=== PATIENT | male | born 1940 | race Caucasian/White ===

== ENCOUNTER 2017-03-24 06:24 | Day surgery (SDC) | payer MEDICARE ==
[2017-03-22 15:33] VITALS: BP 148/83
[2017-03-22 15:40] LABS: BASOPHILS % (AUTO) 0.6 % (0.0-5.0); EOSINOPHILS % (AUTO) 1.5 % (0.0-8.0); HEMATOCRIT 47.2 % (42-54); LYMPHOCYTES % (AUTO) 22.4 % (21.0-51.0); MEAN CORPUSCULAR HEMOGLOBIN 31.8 pg (27.0-33.0); MEAN CORPUSCULAR HGB CONC 33.3 g/dL (32.0-36.0); MEAN CORPUSCULAR VOLUME 95.5 fL (79-99); MONOCYTES % (AUTO) 9.5 % (3.0-13.0); PLATELET COUNT (AUTO) 163 K/uL (130-400); RED BLOOD CELL COUNT(AUTO) 4.94 MIL/uL (4.50-6.20); RED CELL DISTRIBUTION WIDTH 14.2 % (11.0-15.5); WHITE BLOOD COUNT (AUTO) 6.2 K/uL (4.8-10.8)
[2017-03-22 15:43] LABS: APPEARANCE,URINE Clear (CLEAR); BILIRUBIN,URINE Negative (NEGATIVE); COLOR,URINE Yellow (YELLOW); GLUCOSE, URINE (UA) Negative (NEGATIVE); KETONES,URINE Negative (NEGATIVE); LEUKOCYTE ESTERASE ,URINE Trace (NEGATIVE); NITRATE,URINE Negative (NEGATIVE); OCCULT BLOOD,URINE Negative (NEGATIVE); PH,URINE 6.5 (5.0-8.0); PROTEIN,URINE Negative (NEGATIVE)
[2017-03-22 15:55] LABS: POTASSIUM 4.5 mmol/L (3.5-5.1)
[2017-03-22 16:16] LABS: BACTERIA,URINE Rare /HPF (None Seen); RBC,URINE None Seen /HPF (0-1); WBC,URINE 0-1 /HPF (0-1)
[~2017-03-24] VITALS: Ht 175.3 cm; Wt 92.5 kg
[2017-03-24] VITALS (12 sets, daily range): BP systolic 109–154; BP diastolic 53–90
[2017-03-24] MEDS: CEFTRIAXONE SODIUM 1 GM IVP SCH ×2 (06:00→08:19)
[2017-03-24] MEDS: GENTAMICIN 80 MG/NS 100 ML PB 100 ML IV SCH ×2 (06:00→08:12)
[~2017-03-24 06:24] MED LIST: ATOR10TA69 PO; FINA5TAB41 PO; LEVO25TA54 PO; LISI10TA7 PO; PANT40TA25 PO; TAMS0.4C32 PO; bayer PO
[2017-03-24] MEDS ORDERED: LACTATED RINGERS 1000ML 1,000 ML IV ONE (07:00)
[2017-03-24] MEDS ORDERED: WATER FOR INJECTION,STERILE 20 ML VIAL ONE (07:02)
[2017-03-24] MEDS ORDERED: MIDAZOLAM HCL 1 MG/ML 2ML VIAL ONE (07:33)
[2017-03-24] MEDS ORDERED: FENTANYL CITRATE PF 50 MCG/1 ML 2ML VIAL ONE (07:34)
== END 2017-03-24 10:30 | disposition home or self-care (01) ==
LOC: DAH 06:24
PROVIDERS: ATTEND Urology
DX: C61 Malignant neoplasm of prostate (principal); I25.10 Atherosclerotic heart disease of native coronary artery without angina pectoris; E78.5 Hyperlipidemia, unspecified; I10 Essential (primary) hypertension; Z98.890 Other specified postprocedural states; Z88.0 Allergy status to penicillin
CPT/HCPCS: 36415; 55700; 76942; 80048; 81001; 85025; 87088; 88305; 93005; A4215; A4600; J0696; J1580; J2250; J3010; J7120

== ENCOUNTER → 2017-04-28 | Outpatient (CLI) | payer MEDICARE | END | disposition home or self-care (01) | LOC: RAH 10:15 | PROVIDERS: ATTEND Internal Medicine Critical Care Medicine | DX: R05 Cough (principal) | CPT/HCPCS: 71046 ==

== ENCOUNTER → 2017-11-16 | Outpatient (CLI) | payer MEDICARE | END | disposition home or self-care (01) | LOC: SHCH 12:54 | PROVIDERS: ATTEND Internal Medicine Cardiovascular Disease | DX: R94.31 Abnormal electrocardiogram [ECG] [EKG] (principal); I10 Essential (primary) hypertension; E78.5 Hyperlipidemia, unspecified; I25.10 Atherosclerotic heart disease of native coronary artery without angina pectoris | CPT/HCPCS: 93306 ==

== ENCOUNTER 2017-12-26 06:15 | Day surgery (SDC) | payer MEDICARE ==
[2017-12-22 10:37] VITALS: BP 121/73
[2017-12-22 10:39] LABS: BASOPHILS % (AUTO) 0.5 % (0.0-5.0); EOSINOPHILS % (AUTO) 1.9 % (0.0-8.0); HEMATOCRIT 43.4 % (42-54); LYMPHOCYTES % (AUTO) 21.9 % (21.0-51.0); MEAN CORPUSCULAR HEMOGLOBIN 32.7 pg (27.0-33.0); MEAN CORPUSCULAR HGB CONC 34.5 g/dL (32.0-36.0); MEAN CORPUSCULAR VOLUME 94.7 fL (79-99); MONOCYTES % (AUTO) 10.3 % (3.0-13.0); NEUTROPHILS % (AUTO) 65.4 % (40.0-77.0); NUCLEATED RED BLOOD CELLS 0.1 % (0.0-0.19); PLATELET COUNT (AUTO) 125 K/uL (130-400); RED BLOOD CELL COUNT(AUTO) 4.58 MIL/uL (4.50-6.20); RED CELL DISTRIBUTION WIDTH 13.4 % (11.0-15.5)
[2017-12-22 10:45] LABS: CREATININE 0.9 mg/dL (0.5-1.5); POTASSIUM 4.4 mmol/L (3.5-5.1)
[2017-12-22 10:48] LABS: APPEARANCE,URINE Clear (CLEAR); BILIRUBIN,URINE Negative (NEGATIVE); COLOR,URINE Yellow (YELLOW); GLUCOSE, URINE (UA) Negative (NEGATIVE); KETONES,URINE Negative (NEGATIVE); LEUKOCYTE ESTERASE ,URINE Negative (NEGATIVE); NITRATE,URINE Negative (NEGATIVE); OCCULT BLOOD,URINE Negative (NEGATIVE); PROTEIN,URINE Negative (NEGATIVE)
[2017-12-22 11:46] LABS: INR 0.98 (0.85-1.15); PARTIAL THROMBOPLASTIN TIME 29.2 SEC (26.3-35.5); PROTHROMBIN TIME 10.3 SEC (9.6-11.6)
[~2017-12-26] VITALS: Ht 179.1 cm; Wt 87.7 kg
[2017-12-26] VITALS (9 sets, daily range): BP systolic 104–124; BP diastolic 62–78
[~2017-12-26 06:15] MED LIST changes: +MULT-1203 PO
[2017-12-26] MEDS ORDERED: SODIUM CHLORIDE 0.9% 1000ML 1,000 ML IV ONE (06:28)
[2017-12-26] MEDS ORDERED: NITROGLYCERIN 5 MG/ML 10 ML VIAL IV ONE (07:19)
[2017-12-26] MEDS ORDERED: IOHEXOL-350 50ML VIAL IV ONE (07:19)
[2017-12-26] MEDS ORDERED: IOHEXOL 350 MG/ML 100ML INFUS..BTL IV ONE (07:19)
[2017-12-26] MEDS ORDERED: SODIUM BICARB 50MEQ 50ML VIAL ONE (07:19)
[2017-12-26] MEDS ORDERED: LIDOCAINE HCL-MPF 2% 5ML VIAL ONE (07:19)
[2017-12-26] MEDS ORDERED: HEPARIN SODIUM 1000UNIT/ML 10ML VIAL ONE (07:19)
[2017-12-26] MEDS ORDERED: MEPERIDINE-PF 25 MG/ML SYG ONE (09:12)
[2017-12-26] MEDS ORDERED: MIDAZOLAM HCL 1 MG/ML 2ML VIAL ONE (09:12)
[2017-12-26] MEDS ORDERED: IOHEXOL-350 75 ML VIAL IV ONE (09:28)
[2017-12-26] MEDS ORDERED: SODIUM CHLORIDE 0.9% 1000ML 1,000 ML IV SCH (09:59)
== END 2017-12-26 14:30 | disposition home or self-care (01) ==
LOC: DAH 06:15
PROVIDERS: ATTEND Internal Medicine Cardiovascular Disease
DX: I25.118 Atherosclerotic heart disease of native coronary artery with other forms of angina pectoris (principal); I25.41 Coronary artery aneurysm; I10 Essential (primary) hypertension; E78.5 Hyperlipidemia, unspecified; Z85.46 Personal history of malignant neoplasm of prostate; Z72.89 Other problems related to lifestyle; Z79.899 Other long term (current) drug therapy; Z95.1 Presence of aortocoronary bypass graft; Z98.890 Other specified postprocedural states; Z90.49 Acquired absence of other specified parts of digestive tract; Z82.49 Family history of ischemic heart disease and other diseases of the circulatory system; Z82.5 Family history of asthma and other chronic lower respiratory diseases
CPT/HCPCS: 36415; 71045; 80048; 81003; 85025; 85610; 85730; 93005; 93459; A4606; C1760; C1769; C1894; J1644; J2175; J2250; J3490 ×3; J7030; Q9965; Q9967 ×3; 99156; 99157

== ENCOUNTER → 2018-04-17 | Outpatient (CLI) | payer MEDICARE | END | disposition home or self-care (01) | LOC: RAH 11:31 | PROVIDERS: ATTEND Internal Medicine Critical Care Medicine | DX: R06.00 Dyspnea, unspecified (principal) | CPT/HCPCS: 71046 ==

== ENCOUNTER → 2018-09-06 | Outpatient (CLI) | payer MEDICARE ==
[~2018-09-06] MED LIST changes: +IOHEXOL 350 MG/ML 100ML INFUS..BTL IV ONE
== END | disposition home or self-care (01) ==
LOC: RAH 09:09
PROVIDERS: ATTEND Internal Medicine Critical Care Medicine
DX: N32.89 Other specified disorders of bladder (principal); M47.815 Spondylosis without myelopathy or radiculopathy, thoracolumbar region; I51.7 Cardiomegaly; I70.0 Atherosclerosis of aorta
CPT/HCPCS: 74177; Q9967

== ENCOUNTER → 2019-08-29 | Outpatient (CLI) | payer MEDICARE ==
[~2019-08-29] VITALS: Ht 176.5 cm; Wt 88.3 kg
[~2019-08-29] MED LIST changes: +ASPI-556 PO; -ATOR10TA69 PO; -IOHEXOL 350 MG/ML 100ML INFUS..BTL IV ONE; +LEVO5TAB13 PO; +MONT10TA26 PO; +ROSU10TA28 PO; +UBID100C10 PO; -bayer PO
[2019-08-29 09:43] LABS: BASOPHILS % (AUTO) 0.5 % (0.0-5.0); EOSINOPHILS % (AUTO) 2.9 % (0.0-8.0); HEMATOCRIT 45.5 % (42-54); LYMPHOCYTES % (AUTO) 31.2 % (21.0-51.0); MEAN CORPUSCULAR HEMOGLOBIN 31.3 pg (27.0-33.0); MEAN CORPUSCULAR HGB CONC 33.4 g/dL (32.0-36.0); MEAN CORPUSCULAR VOLUME 93.8 fL (79-99); NEUTROPHILS % (AUTO) 51.1 % (40.0-77.0); PLATELET COUNT (AUTO) 143 K/uL (130-400); RED BLOOD CELL COUNT(AUTO) 4.85 MIL/uL (4.50-6.20); WHITE BLOOD COUNT (AUTO) 3.9 K/uL (4.8-10.8)
[2019-08-29 09:57] LABS: INR 0.99 (0.85-1.15); POTASSIUM 4.2 mmol/L (3.5-5.1); PROTHROMBIN TIME 10.7 SEC (9.6-11.6)
[2019-08-29 12:19] VITALS: BP 124/69
== END ==
LOC: EDSTATUS 09:00 → DAH 10:00
PROVIDERS: ATTEND Internal Medicine Cardiovascular Disease
DX: I47.1 Supraventricular tachycardia (principal); I48.0 Paroxysmal atrial fibrillation; I45.10 Unspecified right bundle-branch block; I10 Essential (primary) hypertension; I25.10 Atherosclerotic heart disease of native coronary artery without angina pectoris; E78.5 Hyperlipidemia, unspecified; E03.9 Hypothyroidism, unspecified; Z79.899 Other long term (current) drug therapy; Z79.82 Long term (current) use of aspirin; Z79.890 Hormone replacement therapy; Z98.890 Other specified postprocedural states; Z95.0 Presence of cardiac pacemaker; Z85.46 Personal history of malignant neoplasm of prostate; Z85.820 Personal history of malignant melanoma of skin; Z88.8 Allergy status to other drugs, medicaments and biological substances; Z79.01 Long term (current) use of anticoagulants; Z88.0 Allergy status to penicillin; Z53.8 Procedure and treatment not carried out for other reasons
CPT/HCPCS: 36415; 80048; 85025; 85610; 85730; 93005

== ENCOUNTER 2020-01-10 08:47 | Day surgery (SDC) | payer MEDICARE ==
[2020-01-08 12:47] LABS: BASOPHILS % (AUTO) 0.4 % (0.0-5.0); EOSINOPHILS % (AUTO) 3.9 % (0.0-8.0); HEMATOCRIT 44.9 % (42-54); LYMPHOCYTES % (AUTO) 24.6 % (21.0-51.0); MEAN CORPUSCULAR HEMOGLOBIN 31.4 pg (27.0-33.0); MEAN CORPUSCULAR HGB CONC 33.4 g/dL (32.0-36.0); MEAN CORPUSCULAR VOLUME 93.9 fL (79-99); MONOCYTES % (AUTO) 9.4 % (3.0-13.0); NEUTROPHILS % (AUTO) 61.5 % (40.0-77.0); PLATELET COUNT (AUTO) 163 K/uL (130-400); RED BLOOD CELL COUNT(AUTO) 4.78 MIL/uL (4.50-6.20); RED CELL DISTRIBUTION WIDTH 13.3 % (11.0-15.5); WHITE BLOOD COUNT (AUTO) 4.9 K/uL (4.8-10.8)
[2020-01-08 12:55] LABS: CREATININE 0.9 mg/dL (0.5-1.5); POTASSIUM 4.6 mmol/L (3.5-5.1)
[2020-01-08 13:23] LABS: INR 0.96 (0.85-1.15); PARTIAL THROMBOPLASTIN TIME 28.1 SEC (26.3-35.5); PROTHROMBIN TIME 10.4 SEC (9.6-11.6)
[2020-01-10] VITALS (8 sets, daily range): BP systolic 138–166; BP diastolic 77–89
[~2020-01-10] VITALS: Ht 177.8 cm; Wt 89.3 kg
[~2020-01-10 08:47] MED LIST changes: +CHOL400T33 PO; +DILT30 PO; -PANT40TA25 PO; +PANT40TA54 PO; +SODIUM CHLORIDE 0.9% 1000ML 1,000 ML IV SCH
[2020-01-10] MEDS ORDERED: ISOPROTERENOL HCL 0.2 MG/ML AMP/VIAL/BAG ONE ×2 (09:42→09:46)
[2020-01-10] MEDS ORDERED: HEPARIN SODIUM 1000UNIT/ML 10ML VIAL ONE (09:42)
[2020-01-10] MEDS ORDERED: MIDAZOLAM HCL 1 MG/ML 2ML VIAL ONE ×2 (09:43→12:29)
[2020-01-10] MEDS ORDERED: LIDOCAINE HCL 2% 20ML ONE (09:43)
[2020-01-10] MEDS ORDERED: MEPERIDINE-PF 25 MG/ML SYG ONE ×2 (09:43→12:29)
--- NOTE | 2020-01-10 14:35 | NUR ---
HANDOFF REPORT RECEIVED FROM WILLA BARAJAS RN AT BEDSIDE USING SBAR. PATIENT LYING IN BED WITH SPOUSE AT BEDSIDE. DRESSING TO RIGHT AND LEFT GROIN IS DRY/INTACT, AREA IS SOFT/NONTENDER BILATERALLY. PEDAL PULSES STRONG.
--- NOTE | 2020-01-10 16:10 | NUR ---
HANDOFF REPORT GIVEN TO KRISS GUILLAUME RN USING SBAR AT BEDSIDE
--- NOTE | 2020-01-10 16:50 | NUR ---
day pt dc Pt dcd via wheelchair , accompanied by friend. noted in no apparent distress
== END 2020-01-10 16:50 | disposition home or self-care (01) ==
LOC: DAH 08:47
PROVIDERS: ATTEND Internal Medicine Cardiovascular Disease
DX: I47.1 Supraventricular tachycardia (principal); I45.10 Unspecified right bundle-branch block; I10 Essential (primary) hypertension; E78.5 Hyperlipidemia, unspecified; I48.91 Unspecified atrial fibrillation; I25.10 Atherosclerotic heart disease of native coronary artery without angina pectoris; Z95.1 Presence of aortocoronary bypass graft; E03.9 Hypothyroidism, unspecified; Z90.49 Acquired absence of other specified parts of digestive tract; Z98.890 Other specified postprocedural states; Z79.899 Other long term (current) drug therapy; Z79.82 Long term (current) use of aspirin; Z79.890 Hormone replacement therapy; Z79.01 Long term (current) use of anticoagulants
CPT/HCPCS: 36415; 80048; 85025; 85610; 85730; 93005; 93613; 93621; 93623; 93653; A4216; A4221; A4222; A4223 ×3; A4606; A4649 ×2; A4663; C1730 ×4; C1732; C1894 ×5; J1644 ×2; J2175 ×2; J2250 ×2; J3490 ×3; J7030; 99156; 99157

== ENCOUNTER → 2020-04-04 | Outpatient (CLI) | payer MEDICARE ==
[~2020-04-04] MED LIST changes: -MONT10TA26 PO; +MONT10TA96 PO; +REGADENOSON 0.4 MG/5 ML PF SYG IVP SCH; -SODIUM CHLORIDE 0.9% 1000ML 1,000 ML IV SCH
== END | disposition home or self-care (01) ==
LOC: SHCH 08:47
PROVIDERS: ATTEND Internal Medicine Cardiovascular Disease
DX: I47.1 Supraventricular tachycardia (principal)
CPT/HCPCS: 78452; 93017; 96374; A9500 ×2; J2785

== ENCOUNTER → 2020-04-21 | Outpatient (CLI) | payer MEDICARE ==
[~2020-04-21] MED LIST changes: -REGADENOSON 0.4 MG/5 ML PF SYG IVP SCH
== END | disposition home or self-care (01) ==
LOC: SHCH 08:30
PROVIDERS: ATTEND Internal Medicine Cardiovascular Disease
DX: I47.1 Supraventricular tachycardia (principal)
CPT/HCPCS: 93306; 93356

== ENCOUNTER → 2020-09-10 | Outpatient (CLI) | payer MEDICARE ==
[~2020-09-10] MED LIST changes: +LISI10TA24 PO; -LISI10TA7 PO; +MONT10TA32 PO; -MONT10TA96 PO
== END | disposition home or self-care (01) ==
LOC: RAH 07:57
PROVIDERS: ATTEND Internal Medicine Critical Care Medicine
DX: R10.11 Right upper quadrant pain (principal)
CPT/HCPCS: 76700

== ENCOUNTER → 2021-02-03 | Outpatient (CLI) | payer MEDICARE ==
[~2021-02-03] VITALS: Ht 177.8 cm; Wt 85.3 kg
[~2021-02-03] MED LIST changes: +MONT-39 PO; -MONT10TA32 PO; +REGADENOSON 0.4 MG/5 ML PF SYG IVP SCH
== END | disposition home or self-care (01) ==
LOC: SHCH 08:54
PROVIDERS: ATTEND Internal Medicine Cardiovascular Disease
DX: I10 Essential (primary) hypertension (principal); I25.118 Atherosclerotic heart disease of native coronary artery with other forms of angina pectoris
CPT/HCPCS: 78452; 93017; 93306; 93356; 96374; A9500 ×2; J2785

== ENCOUNTER 2021-05-04 08:51 | Day surgery (SDC) | payer MEDICARE ==
[2021-05-01 15:13] LABS: BASOPHILS % (AUTO) 0.4 % (0.0-5.0); EOSINOPHILS % (AUTO) 4.1 % (0.0-8.0); HEMATOCRIT 43.4 % (42-54); LYMPHOCYTES % (AUTO) 27.6 % (21.0-51.0); MEAN CORPUSCULAR HEMOGLOBIN 30.9 pg (27.0-33.0); MEAN CORPUSCULAR HGB CONC 33.2 g/dL (32.0-36.0); MEAN CORPUSCULAR VOLUME 93.1 fL (79-99); MONOCYTES % (AUTO) 9.1 % (3.0-13.0); NEUTROPHILS % (AUTO) 58.6 % (40.0-77.0); PLATELET COUNT (AUTO) 150 K/uL (130-400); RED BLOOD CELL COUNT(AUTO) 4.66 MIL/uL (4.50-6.20); RED CELL DISTRIBUTION WIDTH 13.2 % (11.0-15.5); WHITE BLOOD COUNT (AUTO) 5.4 K/uL (4.8-10.8)
[2021-05-01 15:24] LABS: APPEARANCE,URINE Clear (CLEAR); BILIRUBIN,URINE Negative (NEGATIVE); COLOR,URINE Yellow (YELLOW); GLUCOSE, URINE (UA) Negative (NEGATIVE); KETONES,URINE Negative (NEGATIVE); LEUKOCYTE ESTERASE ,URINE Negative (NEGATIVE); NITRATE,URINE Negative (NEGATIVE); OCCULT BLOOD,URINE Negative (NEGATIVE); PROTEIN,URINE Negative (NEGATIVE)
[2021-05-01 15:25] LABS: INR 1.09 (0.85-1.15); PROTHROMBIN TIME 11.8 SEC (9.6-11.6)
[2021-05-01 15:27] LABS: PARTIAL THROMBOPLASTIN TIME 30.3 SEC (26.3-35.5)
[2021-05-01 16:30] VITALS: BP 149/81
[2021-05-04] VITALS (10 sets, daily range): BP systolic 148–185; BP diastolic 74–95
[~2021-05-04] VITALS: Ht 177.8 cm; Wt 86.0 kg
[~2021-05-04 08:51] MED LIST changes: +0.9%NACL 1000ML 1,000 ML IV SCH; -DILT30 PO; -FINA5TAB41 PO; -LEVO25TA54 PO; +LEVO25TA85 PO; -LISI10TA24 PO; +LISI20TA24 PO; +OMEP40CA21 PO; -PANT40TA54 PO; +PSYL660P17 PO; -REGADENOSON 0.4 MG/5 ML PF SYG IVP SCH
[2021-05-04] MEDS ORDERED: HEPARIN 10,000 UNIT/10ML (1,000 UNIT/ML) VIAL ONE (13:10)
[2021-05-04] MEDS ORDERED: IOHEXOL 350 MG/ML 100ML INFUS..BTL IV ONE (13:10)
[2021-05-04] MEDS ORDERED: NITROGLYCERIN 50MG VIAL ONE (13:10)
[2021-05-04] MEDS ORDERED: IOHEXOL-350 50ML VIAL IV ONE (13:10)
[2021-05-04] MEDS ORDERED: SODIUM BICARB 50MEQ 50ML VIAL 50 ML ONE (13:10)
[2021-05-04] MEDS ORDERED: MEPERIDINE-PF 25 MG/ML SYG ONE ×2 (13:10→13:38)
[2021-05-04] MEDS ORDERED: MIDAZOLAM HCL 1 MG/ML 2ML VIAL ONE ×2 (13:10→13:38)
[2021-05-04] MEDS ORDERED: LIDOCAINE HCL 400MG/20ML VIAL ONE (13:11)
[2021-05-04] MEDS ORDERED: IOHEXOL-350 75 ML VIAL IV ONE (13:49)
[2021-05-04] MEDS ORDERED: 0.9%NACL 1000ML 1,000 ML IV SCH (15:00)
== END 2021-05-04 19:20 | disposition home or self-care (01) ==
LOC: DAH 08:51
PROVIDERS: ATTEND Internal Medicine Cardiovascular Disease
DX: I25.119 Atherosclerotic heart disease of native coronary artery with unspecified angina pectoris (principal); Q24.5 Malformation of coronary vessels; Q25.49 Other congenital malformations of aorta; I77.1 Stricture of artery; I45.10 Unspecified right bundle-branch block; I10 Essential (primary) hypertension; E78.5 Hyperlipidemia, unspecified; E03.9 Hypothyroidism, unspecified; Z85.46 Personal history of malignant neoplasm of prostate; Z95.1 Presence of aortocoronary bypass graft; Z98.890 Other specified postprocedural states; Z90.49 Acquired absence of other specified parts of digestive tract; Z79.82 Long term (current) use of aspirin; Z79.899 Other long term (current) drug therapy; Z72.89 Other problems related to lifestyle; Z88.8 Allergy status to other drugs, medicaments and biological substances; Z88.0 Allergy status to penicillin; Z79.01 Long term (current) use of anticoagulants; Z79.890 Hormone replacement therapy
CPT/HCPCS: 36415; 80048; 81003; 85025; 85610; 85730; 93005; 93459; A4215; A4216; A4221; A4222; A4223 ×3; A4606; A4663; C1760 ×2; C1769; C1894; J1644; J2175 ×2; J2250 ×2; J3490 ×3; J7030; Q9965; Q9967 ×3; 99156; 99157

== ENCOUNTER → 2023-08-04 | Outpatient (CLI) | payer MEDICARE ==
[~2023-08-04] MED LIST changes: -0.9%NACL 1000ML 1,000 ML IV SCH; +APIX5TAB PO; +CHOL-4 PO; -CHOL400T33 PO; -LISI20TA24 PO; +LISI40TA9 PO; -MULT-1203 PO; +SUCR1ORA15 PO; -UBID100C10 PO
== END | disposition home or self-care (01) ==
LOC: RAH 13:30
PROVIDERS: ATTEND Internal Medicine Critical Care Medicine
DX: M47.26 Other spondylosis with radiculopathy, lumbar region (principal); M48.02 Spinal stenosis, cervical region
CPT/HCPCS: 72100

== ENCOUNTER → 2023-11-16 | Outpatient (CLI) | payer MEDICARE ==
[~2023-11-16] MED LIST changes: -ROSU10TA28 PO; +ROSU10TA72 PO
== END | disposition home or self-care (01) ==
LOC: RAH 12:53
PROVIDERS: ATTEND Internal Medicine Critical Care Medicine
DX: M47.26 Other spondylosis with radiculopathy, lumbar region (principal); M48.07 Spinal stenosis, lumbosacral region; M47.817 Spondylosis without myelopathy or radiculopathy, lumbosacral region
CPT/HCPCS: 72148

== ENCOUNTER → 2024-01-24 | Outpatient (CLI) | payer MEDICARE ==
[~2024-01-24] MED LIST changes: -CHOL-4 PO; -LEVO25TA85 PO; -LISI40TA9 PO; +MELO-106 PO; +OLME40TA18 PO; +PSYL0.4C2 PO; -PSYL660P17 PO; +SOTA80TA PO; -SUCR1ORA15 PO
== END | disposition home or self-care (01) ==
LOC: SHCH 09:02
PROVIDERS: ATTEND Internal Medicine Cardiovascular Disease
DX: I48.19 Other persistent atrial fibrillation (principal)
CPT/HCPCS: 93306

== ENCOUNTER → 2024-03-19 | Outpatient (CLI) | payer MEDICARE ==
[~2024-03-19] MED LIST changes: +IOHEXOL 350 MG/ML 100ML INFUS..BTL IV ONE
--- NOTE | 2024-03-19 09:31 | HMCIMG ---
CT ANGIO CHEST AFIB REASON: Other persistent atrial fibrillation, SHAHBAZ PROTOCOL COMPARISON: None TECHNIQUE: Arrhythmia protocol post contrast CT chest was performed during bolus IV contrast infusion, 100 cc Omnipaque 350. 2 mm contiguous sections were obtained. 2-D and 3-D reconstruction images were performed as well. FINDINGS: Lungs are clear. There is normal-appearing pulmonary parenchyma. There is no evidence of fibrosis or chronic lung disease. There is a 5 mm calcified granuloma anteriorly in the right lung base. There are no soft tissue masses or acute appearing infiltrates. Heart size is normal. There is moderate to coronary artery calcification. A sending aorta is 2.7 cm, within normal limits. There is mild tortuosity of the thoracic aorta, there is no evidence of aneurysm or dissection. Central pulmonary arteries appear unremarkable. There is no CT evidence of PE. There is been previous median sternotomy. Mediastinum and bony thorax appear otherwise unremarkable. Visualized upper abdominal structures appear normal. IMPRESSION: 1. Mild tortuosity of the thoracic aorta without evidence of aneurysm or dissection. 2. Moderate coronary artery calcification, there has been a previous median sternotomy. 3. Otherwise unremarkable exam, no evidence of pulmonary embolism, no acute finding.
== END | disposition home or self-care (01) ==
LOC: RAH 07:36
PROVIDERS: ATTEND Internal Medicine Cardiovascular Disease
DX: I25.10 Atherosclerotic heart disease of native coronary artery without angina pectoris (principal); J98.4 Other disorders of lung; I48.19 Other persistent atrial fibrillation
CPT/HCPCS: 71275; Q9967

== ENCOUNTER 2024-04-17 05:53 | Day surgery (SDC) | payer MEDICARE ==
[2024-04-13 12:38] LABS: BASOPHILS # (AUTO) 0.04 K/uL (0.00-0.20); BASOPHILS % (AUTO) 0.9 % (0.0-5.0); EOSINOPHILS # (AUTO) 0.13 K/uL (0.00-0.70); EOSINOPHILS % (AUTO) 2.9 % (0.0-8.0); HEMATOCRIT 47.2 % (42-54); IMMATURE GRANULOCYTE ABSOLUTE 0.01 K/uL (0-1); LYMPHOCYTES # (AUTO) 1.2 K/uL (1.0-4.8); MEAN CORPUSCULAR HGB CONC 32.8 g/dL (32.0-36.0); MEAN CORPUSCULAR VOLUME 94.4 fL (79-99); MONOCYTES # (AUTO) 0.4 K/uL (0.1-1.0); MONOCYTES % (AUTO) 9.2 % (3.0-13.0); NEUTROPHILS # (AUTO) 2.7 K/uL (1.8-7.7); NEUTROPHILS % (AUTO) 59.8 % (40.0-77.0); PLATELET COUNT (AUTO) 137 K/uL (130-400); RED CELL DISTRIBUTION WIDTH 12.8 % (11.0-15.5); WHITE BLOOD COUNT (AUTO) 4.6 K/uL (4.8-10.8)
[2024-04-13 12:46] LABS: INR 1.01 (0.85-1.15); PROTHROMBIN TIME 11.3 SEC (9.6-11.6)
[2024-04-13 12:47] LABS: PARTIAL THROMBOPLASTIN TIME 29.9 SEC (26.3-35.5)
[2024-04-13 12:48] VITALS: BP 140/74; PULSE 54; RESP 13; TEMP 97.2
[2024-04-13 12:53] LABS: CREATININE 0.8 mg/dL (0.5-1.3); POTASSIUM 4.2 mmol/L (3.5-5.1)
--- NOTE | 2024-04-13 13:08 | EKG ---
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
[2024-04-17] VITALS (17 sets, daily range): BP systolic 129–149; BP diastolic 62–82; PULSE 46–54; RESP 12–18; TEMP 96.9–97.9
[~2024-04-17] VITALS: Ht 175.3 cm; Wt 88.3 kg
[~2024-04-17 05:53] MED LIST changes: +GABA300C PO; -IOHEXOL 350 MG/ML 100ML INFUS..BTL IV ONE; +LEVO25CA4 PO; -LEVO5TAB13 PO; -MELO-106 PO; +OMEP20CA12 PO; -OMEP40CA21 PO
[2024-04-17] MEDS ORDERED: acetaMINOPHEN 100 ML ONE (06:39)
[2024-04-17] MEDS ORDERED: FAMOTIDINE 20MG VIAL IV ONE (06:39)
[2024-04-17] MEDS ORDERED: FENTanyl CITRate PF 50 MCG/1 ML 2ML VIAL ONE (06:41)
[2024-04-17] MEDS ORDERED: rocuRONium bROMide 10MG/1ML 5ML VL ONE (06:41)
[2024-04-17] MEDS ORDERED: LIDOCAINE PF 100MG/5ML (2%) SYRINGE 5ML ONE (06:41)
[2024-04-17] MEDS ORDERED: proPOFol 10 MG/ML 20ML VIAL IV ONE (06:41)
[2024-04-17] MEDS ORDERED: ondanSETRON 4MG INJ ONE (06:42)
[2024-04-17] MEDS ORDERED: dexaMETHasone SOD PHOSPHATE 4 MG/ML 1ML VIAL ONE (06:42)
[2024-04-17] MEDS ORDERED: NEOSTIGMINE METHYLSULFATE 1MG/ML IV ONE (06:43)
[2024-04-17] MEDS ORDERED: GLYCOPYRROLATE 0.2 MG/ML 5 ML VIAL ONE (06:43)
[2024-04-17] MEDS ORDERED: LIDOCAINE HCL 1% MDV 50ML VIAL ONE (07:56)
[2024-04-17] MEDS ORDERED: HEParin-NS 1,000 UNIT/500 ML 1,500 ML IV ONE (07:56)
[2024-04-17] MEDS ORDERED: HEParin 10,000 UNIT/10ML (1,000 UNIT/ML) VIAL ONE ×2 (07:57→08:18)
[2024-04-17] MEDS: 0.9%NACL 1000ML 1,000 ML IV ONE (08:10)
[2024-04-17] MEDS ORDERED: dexaMETHasone SOD PHOSPHATE 10MG/ML 1ML VIAL ONE (08:26)
[2024-04-17] MEDS ORDERED: ePHEDrine SULFate 50 MG/ML AMPULE ONE (08:31)
[2024-04-17] MEDS ORDERED: phenylEPHRINE HCL 10 MG/ML 1ML VIAL IV ONE (10:23)
[2024-04-17] MEDS ORDERED: PROTamine SULFate 10 MG/ML 25ML VIAL IV ONE (11:50)
[2024-04-17] MEDS ORDERED: PANT40TA55 PO (12:17)
[2024-04-17] MEDS ORDERED: SUCR1ORA15 PO (12:17)
[2024-04-17] MEDS ORDERED: SUCRALFATE 1 GM/10 ML PO ONE (12:30)
[2024-04-17] MEDS ORDERED: PANTOPrazole 40 MG TAB DR PO ONE (12:30)
[2024-04-17] MEDS: FENTanyl CITRate PF 50 MCG/1 ML 2ML VIAL ONE (13:03)
== END 2024-04-17 14:35 | disposition home or self-care (01) ==
LOC: DAH 05:53
PROVIDERS: ATTEND Internal Medicine Cardiovascular Disease
DX: I48.19 Other persistent atrial fibrillation (principal); I45.10 Unspecified right bundle-branch block; I10 Essential (primary) hypertension; I25.10 Atherosclerotic heart disease of native coronary artery without angina pectoris; E78.5 Hyperlipidemia, unspecified; E03.9 Hypothyroidism, unspecified; I48.0 Paroxysmal atrial fibrillation; I44.0 Atrioventricular block, first degree; Z85.46 Personal history of malignant neoplasm of prostate; Z95.1 Presence of aortocoronary bypass graft; Z98.890 Other specified postprocedural states; Z88.0 Allergy status to penicillin; Z79.01 Long term (current) use of anticoagulants; Z79.82 Long term (current) use of aspirin; Z79.899 Other long term (current) drug therapy
CPT/HCPCS: 80048; 85025; 85610; 85730; 36415; 93005; 93656; J1100 ×2; C1894 ×3; C1732 ×3; A4649 ×2; C1760 ×3; C1766; J3490 ×5; J3010 ×2; J7030; J2003; J1644 ×3; J2704; J2405; J2710; J2371; A4215; A4222; A4221; A4663; A4216; A4606; J2720; A4223 ×3

== ENCOUNTER 2024-04-17 19:06 | Emergency (ER) | payer MEDICARE ==
[~2024-04-17] VITALS: Ht 175.3 cm; Wt 88.0 kg
[~2024-04-17 19:06] MED LIST changes: +PANT40TA55 PO; +SUCR1ORA15 PO
--- NOTE | 2024-04-17 19:50 | ERN ---
General Stated Complaint: POST OP PROBLEM, RIGHT GROIN PAIN Time Seen by MD: 19:21 Source: patient History of Present Illness Initial Comments Patient is a an 84-year-old male coming in to be evaluated for right groin pain. Per patient he had a cardiac catheterization performed earlier today by Dr. Rand beef lugger. Patient states that his right inguinal area has been hurting and he believes it was swollen. Allergies: Coded Allergies: Penicillins (Unverified Allergy, Unknown, 12/16/14) Home Meds Active Scripts Pantoprazole Sodium (Protonix) 40 Mg Ectab, 1 TAB PO DAILY for 15 Days, #15 TAB 0 Refills Prov:JJ HARTMANN MD 04/17/24 Sucralfate (Sucralfate) 1 Gram/10 Ml Oral.susp, 10 ML PO QID for 15 Days, #600 ML 0 Refills Prov:JJ HARTMANN MD 04/17/24 Reported Medications Gabapentin (Neurontin) 300 Mg Capsule, 300 MG PO BID, CAP 04/13/24 Levothyroxine Sodium (Levothyroxine) 25 Mcg Capsule, 25 MCG PO AM, CAP 04/13/24 Omeprazole (Omeprazole) 20 Mg Capsule.dr, 20 MG PO DAILY, CAP 04/13/24 Olmesartan Medoxomil (Olmesartan Medoxomil) 40 Mg Tablet, 1 TAB PO DAILY for 30 Days, #30 TAB 0 Refills 01/03/24 Psyllium Husk (Metamucil) 0.4 Gram Capsule, 1 CAP PO AM for 30 Days, #60 CAP 0 Refills 01/03/24 Apixaban (Eliquis) 5 Mg Tablet, 5 MG PO BID, TAB 01/04/22 Montelukast Sodium (Montelukast Sodium) 10 Mg Tablet, 10 MG PO DAILY, TAB 08/14/19 Rosuvastatin Calcium (Rosuvastatin Calcium) 10 Mg Tablet, 10 MG PO DAILY, TAB 08/14/19 Aspirin (Aspir 81) 81 Mg Tablet.dr, 81 MG PO HS, TAB 08/14/19 Tamsulosin HCl (Tamsulosin HCl) 0.4 Mg Cap.er.24h, 0.4 MG PO HS, CAPSULE. 12/16/14 Discontinued Reported Medications Meloxicam (Meloxicam) 7.5 Mg Tablet, 1 TAB PO DAILY for 30 Days, #30 TAB 0 Refills 01/03/24 Omeprazole (Omeprazole) 40 Mg Capsule.dr, 40 MG PO ACBKFST, CAP 05/01/21 Levocetirizine Dihydrochloride (Levocetirizine Dihydrochloride) 5 Mg Tablet, 5 MG PO HS, TAB 08/14/19 Discontinued Scripts Sotalol HCl (Sotalol) 80 Mg Tablet, 80 MG PO BID for 30 Days, #60 TAB 2 Refills Prov:AYANNA HANNAH MD 01/04/24 Past Medical History Past Medical History: A-Fib, Cancer, Hypertension Medical History Other: PROSTATE CA Past Surgical History: Appendectomy, CABG ROS Dictation CONSTITUTIONAL: No chills, no fever, no weakness, no diaphoresis, no malaise. HEAD/FACE: No signs of trauma. EENT: No eye pain, no blurred vision, no tearing, no double vision, no ear pain, no ear discharge, no nose pain, no nasal congestion, no throat pain, no throat swelling, no mouth pain. RESPIRATORY: No cough, no orthopnea, no SOB, no stridor, no wheezing. CARDIOVASCULAR: No chest pain, no edema, no palpitations, no syncope. GASTROINTESTINAL/ABDOMINAL: No abdominal pain, no constipation, no diarrhea, no nausea, no vomiting. GENITOURINARY: No abnormal discharge, no dysuria, no frequent urination, no hematuria. No complaints of pain in the genitals. MUSCULOSKELETAL: No back pain, no gout, no joint pain, no joint swelling, no muscle pain, no muscle stiffness, no neck pain. INTEGUMENTARY: No change in color, no change in hair/nails, no dryness, no lesion, no lumps, no rash. NEUROLOGICAL/PSYCH: No anxiety, not depressed, no emotional problem, no headache, no numbness, no pre-existing deficit, no history of seizures, no tr emors, no weakness. HEMATOLOGIC/LYMPHATIC: Not anemic, no history of blood clots, no apparent bleeding, no bruising, glands not swollen. All Systems Negative, Except as Noted. Physical Exam Physical Exam Dictation VITAL SIGNS: Reviewed. GENERAL APPEARANCE: Alert, oriented x3, no acute distress, obese. HEAD AND FACE: Non-traumatic. EYES: PERRL, pink conjunctivas, eyelid no trauma, anterior chamber clear. EARS: Pinnas intact and no signs of trauma or erythema. Ear canals clear and no discharge. TMs no erythema. NOSE: No discharge, no bleeding. OROPHARYNX: Mouth normal, teeth no caries, tongue pink. Pharynx clear, no erythema. Tonsils no exudates, no abscesses noted. Mucous membrane moist. NECK: Supple, non-tender, no thyromegaly, no masses, no JVD, no bruits. BREAST: Deferred. CHEST: No tenderness, no crepitus, no paradoxical movement, no retractions. LUNGS: Clear, well-ventilated, symmetric, no rales, no wheezing, no rhonchi, no stridor, good breath sounds bilaterally. HEART: Regular rate, regular rhythm, no murmur, no gallops. VASCULAR: No peripheral edema. ABDOMEN: Soft, positive bowel sounds, nondistended, no guarding, nontender, no rebound, no masses no hepatomegaly, no splenomegaly, no Cherry's sign, no hernias. RECTAL: Deferred. GENITAL: Deferred. NEUROLOGICAL: Normal speech, gross motor function intact, gross sensory function intact. MUSCULOSKELETAL: Neck nontender, full range of motion, back nontender, full range of motion. EXTREMITIES: Nontender, full range of motion. SKIN: Color pink, dry, no turgor, no rash, no lacerations, no abrasions, no contusions. LYMPHATICS: Deferred. Results Laboratory and Microbiology Lab and Micro Result Laboratory Tests Test 04/17/24 20:21 White Blood Count 7.4 K/uL (4.8-10.8) Red Blood Count 4.76 MIL/uL (4.50-6.20) Hemoglobin 14.6 g/dL (14.0-18.0) Hematocrit 44.4 % (42-54) Mean Corpuscular Volume 93.3 fL (79-99) Mean Corpuscular Hemoglobin 30.7 pg (27.0-33.0) Mean Corpuscular Hemoglobin Concent 32.9 g/dL (32.0-36.0) Red Cell Distribution Width 13.1 % (11.0-15.5) Platelet Count 142 K/uL (130-400) Mean Platelet Volume 11.2 fL (7.5-10.5) H Immature Granulocyte % (Auto) 0.4 % (0-1) Neutrophils (%) (Auto) 86.0 % (40.0-77.0) H Lymphocytes (%) (Auto) 11.2 % (21.0-51.0) L Monocytes (%) (Auto) 2.3 % (3.0-13.0) L Eosinophils (%) (Auto) 0.0 % (0.0-8.0) Basophils (%) (Auto) 0.1 % (0.0-5.0) Neutrophils # (Auto) 6.3 K/uL (1.8-7.7) Lymphocytes # (Auto) 0.8 K/uL (1.0-4.8) L Monocytes # (Auto) 0.2 K/uL (0.1-1.0) Eosinophils # (Auto) 0.00 K/uL (0.00-0.70) Basophils # (Auto) 0.01 K/uL (0.00-0.20) Absolute Immature Granulocyte (auto 0.03 K/uL (0-1) Nucleated Red Blood Cells 0.0 % (0.0-0.19) Sodium Level 139 mmol/L (136-145) Potassium Level 4.5 mmol/L (3.5-5.1) Chloride Level 104 mmol/L (101-111) Carbon Dioxide Level 32 mmol/L (21-32) Blood Urea Nitrogen 20 mg/dL (7-18) H Creatinine 1.1 mg/dL (0.5-1.3) Glomerular Filtration Rate Calc 66 mL/min (>90) Random Glucose 160 mg/dL (70-105) H Total Calcium 9.0 mg/dL (8.5-10.1) Labs Reviewed?: Yes EKG/XRAY/US/CT/MRI Ultrasound Comment Ultrasound right groin-4.5 cm hematoma MDM MDM: Differential diagnosis: Status post catheterization, inguinal discomfort, Patient is a an 84-year-old male coming in to be evaluated for right inguinal discomfort. Patient states that earlier this morning patient had a procedure performed by Dr. Hartmann. Patient states he had a catheterization cardiac catheterization. On physical exam no erythema mild swelling no bleeding. Ultrasound disclose a 4.5 cm hematoma I advised patient continued bed rest and icing and compressing. Also advised him limiting ambulation and follow up with his beef lugger. Patient will be discharged in stable condition. ED Course Orders Procedure Category Date Status Time Cbc With Differential LAB 04/17/24 Complete 19:46 Basic Metabolic Panel LAB 04/17/24 Complete 19:46 Us Soft Tissue Lower US 04/17/24 Taken Extremity 21:01 Vital Signs Date Time Temp Pulse Resp B/P (MAP) Pulse Ox O2 Delivery O2 Flow Rate FiO2 04/17/24 20:07 98.1 62 20 146/84 95 Room Air DX & DISP Disposition: Discharge Departure Impression: Primary Impression: Encounter for evaluation of wound Condition: Stable Additional Instructions: FOLLOW-UP WITH PRIMARY CARE PROVIDER IN 1 TO 2 DAYS. TAKE MEDICATIONS DIRECTED HERE IN THE EMERGENCY ROOM. OKAY TO CONTINUE HOME MEDICATIONS UNLESS OTHERWISE DISCUSSED DURING YOUR VISIT IN THE EMERGENCY ROOM TODAY. RETURN TO YOUR NEAREST EMERGENCY ROOM IF SYMPTOMS WORSEN OR IF THERE IS NO IMPROVEMENT. CALL 911 IF YOU NEED IMMEDIATE ASSISTANCE. TAKE TYLENOL [id number] NEEDED AND IF NO CONTRAINDICATIONS ARE PRESENT. INCREASE ORAL HYDRATION. A WOUND CULTURE OR URINE CULTURE WAS ORDERED HERE IN THE EMERGENCY ROOM DEPARTMENT PLEASE FOLLOW-UP WITH PRIMARY CARE PROVIDER AND ADVISE THEM TO GET REPEAT PORTS FROM OUR FACILITY. IF YOU HAD ANY GIOVANNY WRAP/SPLINTS THAT WERE APPLIED HERE, PLEASE DO NOT REMOVE THEM UNTIL YOU SEE YOUR PRIMARY CARE OR SPECIALTY. Referrals: Referrals: JUANY VIRAMONTES MD (PCP) Time of Disposition: 22:03 ISABELLA GRANGER MD Apr 17, 2024 19:50
[2024-04-17 20:28] LABS: BASOPHILS # (AUTO) 0.01 K/uL (0.00-0.20); BASOPHILS % (AUTO) 0.1 % (0.0-5.0); HEMATOCRIT 44.4 % (42-54); IMMATURE GRANULOCYTE ABSOLUTE 0.03 K/uL (0-1); LYMPHOCYTES # (AUTO) 0.8 K/uL (1.0-4.8); LYMPHOCYTES % (AUTO) 11.2 % (21.0-51.0); MEAN CORPUSCULAR HEMOGLOBIN 30.7 pg (27.0-33.0); MEAN CORPUSCULAR HGB CONC 32.9 g/dL (32.0-36.0); MEAN CORPUSCULAR VOLUME 93.3 fL (79-99); MONOCYTES # (AUTO) 0.2 K/uL (0.1-1.0); MONOCYTES % (AUTO) 2.3 % (3.0-13.0); NEUTROPHILS # (AUTO) 6.3 K/uL (1.8-7.7); PLATELET COUNT (AUTO) 142 K/uL (130-400); RED BLOOD CELL COUNT(AUTO) 4.76 MIL/uL (4.50-6.20); RED CELL DISTRIBUTION WIDTH 13.1 % (11.0-15.5); WHITE BLOOD COUNT (AUTO) 7.4 K/uL (4.8-10.8)
[2024-04-17 20:37] LABS: CREATININE 1.1 mg/dL (0.5-1.3); POTASSIUM 4.5 mmol/L (3.5-5.1)
[2024-04-17 22:25] VITALS: BP 122/67; PULSE 65; RESP 18; TEMP 97.7; O2SAT 98
--- NOTE | 2024-04-18 10:06 | HMCIMG ---
Exam: Ultrasound right groin Reason: Right groin swelling, recent catheterization. FINDINGS: There is a 3.3 x 4.0 x 4.5 cm focal hematoma in the deep soft tissues of the right groin. This is adjacent to the femoral vessels. Femoral artery and vein appear patent. Vascular Doppler evaluation shows no evidence of pseudoaneurysm. IMPRESSION: 1. Focal hematoma in the right groin 4.5 cm maximum dimension, no evidence of pseudoaneurysm.
== END 2024-04-17 22:30 | disposition home or self-care (01) ==
LOC: EDH 19:06
DX: S30.1XXA Contusion of abdominal wall, initial encounter (principal); I10 Essential (primary) hypertension; I48.91 Unspecified atrial fibrillation; Z79.01 Long term (current) use of anticoagulants; Z79.1 Long term (current) use of non-steroidal anti-inflammatories (NSAID); Z79.82 Long term (current) use of aspirin; Z79.899 Other long term (current) drug therapy; Z88.0 Allergy status to penicillin; Z90.49 Acquired absence of other specified parts of digestive tract; Z95.1 Presence of aortocoronary bypass graft; X58.XXXA Exposure to other specified factors, initial encounter; Y93.89 Activity, other specified; Y92.89 Other specified places as the place of occurrence of the external cause; Y99.8 Other external cause status
CPT/HCPCS: 36415; 76882; 80048; 85025; 99284

== ENCOUNTER → 2025-02-06 | Outpatient (CLI) | payer MEDICARE ==
[~2025-02-06] MED LIST changes: -LEVO25CA4 PO; +LEVO25TA54 PO; -OLME40TA18 PO; -ROSU10TA72 PO; +ROSU10TA98 PO; -SOTA80TA PO
--- NOTE | 2025-02-06 21:51 | HMCIMG ---
STUDY: CAROTID DUPLEX ULTRASOUND CLINICAL INFORMATION: Occlusion and stenosis of unspecified carotid artery; evaluation for carotid artery disease. TECHNIQUE: Grayscale, color Doppler, and spectral Doppler ultrasound of the bilateral common, internal, and external carotid arteries and vertebral arteries was performed with peak systolic velocities and ICA/CCA ratios obtained. COMPARISON: None provided. FINDINGS: RIGHT CAROTID SYSTEM: Right common carotid artery: Peak systolic velocity approximately 63 cm/s. Right internal carotid artery: Peak systolic velocity approximately 80 cm/s with an ICA/CCA ratio of 1.3. Right external carotid artery: Peak systolic velocity approximately 74 cm/s. Waveforms are within expected limits without focal marked velocity elevation to suggest hemodynamically significant stenosis. The right internal carotid artery is noted to be tortuous. Right vertebral artery: Peak systolic velocity approximately 52 cm/s with antegrade flow. LEFT CAROTID SYSTEM: Left common carotid artery: Peak systolic velocity approximately 51 cm/s. Left internal carotid artery: Peak systolic velocity approximately 85 cm/s with an ICA/CCA ratio of 1.7. Left external carotid artery: Peak systolic velocity approximately 64 cm/s. Waveforms are within expected limits, and there is no focal doubling of velocity or high-grade jet to suggest hemodynamically significant stenosis. The left internal carotid artery is also tortuous. Left vertebral artery: Peak systolic velocity approximately 55 cm/s with antegrade flow. IMPRESSION: * Duplex velocities and ICA/CCA ratios bilaterally do not demonstrate hemodynamically significant (>50%) stenosis of the internal carotid arteries. * Bilateral tortuosity of the internal carotid arteries. * Preserved antegrade flow in both vertebral arteries. /[place]
== END | disposition home or self-care (01) ==
LOC: RAH 13:12
PROVIDERS: ATTEND Internal Medicine Cardiovascular Disease
DX: I77.1 Stricture of artery (principal); I65.29 Occlusion and stenosis of unspecified carotid artery; I10 Essential (primary) hypertension
CPT/HCPCS: 93880